=== PATIENT | male | born 1985 | race Caucasian/White ===

== ENCOUNTER 2016-08-20 16:13 | Emergency (ER) | payer MEDICAID ==
[2016-08-20] MEDS ORDERED: MAGNESIUM SULFATE 1 GM/2 ML VIAL ONE (17:01)
[2016-08-20] MEDS ORDERED: ONDANSETRON HCL 4 MG/2 ML VIAL ONE (17:02)
[2016-08-20] MEDS ORDERED: MULTIVITAMINS 10 ML VIAL IV ONE (17:02)
[2016-08-20] MEDS ORDERED: FAMOTIDINE IN SALINE, ISO-OSM 50 ML IV ONE (17:02)
[2016-08-20] MEDS ORDERED: THIAMINE HCL 200 MG/2 ML VIAL ONE (17:02)
[2016-08-20] MEDS ORDERED: NORMAL SALINE 1,000 ML IV ONE (17:02)
[2016-08-20 17:03] LABS: BASOPHILS 0.5 % (0.0-2.0); HEMATOCRIT 57.5 % (42.0-54.0); HEMOGLOBIN 19.7 g/dL (14.0-18.0); LYMPHOCYTES# 1.8 X 10^3uL (0.8-3.8); MEAN CELL VOLUME 90.1 fL (84.0-102.0); MEAN CORPUS. HGB CONCENTRATION 34.3 g/dL (32.0-36.0); MEAN CORPUSCULAR HEMOGLOBIN 30.9 pg (29.0-35.0); MONOCYTES# 0.5 X 10^3uL (0.2-1.0); NEUTROPHILS 71.5 % (54.0-75.0); NEUTROPHILS# 6.1 X 10^3uL (2.6-6.7); PLATELET COUNT 255 X 10^3uL (130-440); RED BLOOD COUNT 6.38 X 10^6uL (4.20-6.10); WHITE BLOOD COUNT 8.4 X 10^3uL (3.9-10.7)
[2016-08-20] MEDS ORDERED: LORazepam 2 MG/ML INJ ONE (17:03)
[2016-08-20 17:05] LABS: ALBUMIN 5.5 g/dL (3.5-5.0); ALKALINE PHOSPHATASE 105 U/L (38-126); ALT 392 U/L (21-72); AST 96 U/L (17-59); BILIRUBIN, DIRECT 0.8 mg/dL (0.0-0.4); BILIRUBIN, TOTAL 1.9 mg/dL (0.2-1.3); BLOOD UREA NITROGEN 8 mg/dL (9-20); CALCIUM 10.5 mg/dL (8.4-10.2); CHLORIDE 102 mmol/L (98-107); CREATININE 0.9 mg/dL (0.7-1.3); EST GLOMERULAR FILTRATION RATE > 60 mL/min; ETHYL ALCOHOL < 10 mg/dL (<10); GLUCOSE 102 mg/dL (70-100); MAGNESIUM 1.7 mg/dL (1.6-2.3); POTASSIUM 3.8 mmol/L (3.5-5.1); SODIUM 143 mmol/L (137-145); TOTAL PROTEIN 9.7 g/dL (6.3-8.2)
--- NOTE | 2016-08-20 18:26 | ER PHYSICIAN DOCUMENTATION ---
Physician Documentation [facility] Name:Abdoul Mendoza Age:31 yrs Sex:Male :1985 Arrival Date:08/20/2016 Time:16:13 Bed5 Private MD: Josemanuel Kilgore Disposition: 08/20/16 16:50 Discharged to Home/Self Care. Impression: Alcohol (ETOH) Withdrawal. - Condition is Good. - Discharge Instructions: ALCOHOL WITHDRAWAL, Alcoholic Cirrhosis - CIRRHOSIS. - Medical Reconciliation form form. - Follow up: Alisia [facility]; When: 2 - 3 days; Reason: Continuance of care. - Problem is an ongoing problem. - Symptoms have improved. HPI: 08/20 16:37 This 31 yrs old Male presents to ER via Walk In with complaints of Alcohol sc Withdrawal. 16:37 The patient presents to the emergency department with anxiety, a history of substance sc abuse, Type: vodka, whisky. Onset: The symptom(s)/episode began/occurred 3 day(s) ago. Associated signs and symptoms: Pertinent positives; abdominal pain, acid reflux. Severity of symptoms: At their worst the symptoms were mild. The patient has experienced similar episodes in the past, chronically. has librium for wd sxs, sober three weeks before 2 day binge starting Thursday. no h/o wd sxs or dts. Historical: - Allergies: No known drug Allergies; - Home Meds: 1. Effexor XR Oral 2. librium - PMHx: ALCOHOLISM; DEPRESSION; - PSHx: None; - Tetanus: < 10 years. - Ebola Screening: : Patient negative for fever greater than or equal to 101.5 degrees Fahrenheit, and additional compatible Ebola Virus Disease symptoms. Patient denies exposure to infectious person. Patient denies travel to an Ebola-affected area in the 21 days before illness onset. No symptoms or risks identified at this time. . - Immunization history: Flu Vaccine < 1 year. - Social history: Smoking status: Patient states was never smoker of tobacco. Patient uses alcohol marijuana. - Code Status:: Full code. ROS: 16:42 Constitutional: Negative for fever, chills, and weight loss. sc Eyes: Negative for injury, pain, redness, and discharge. ENT: Negative for injury, pain, and discharge. Neck: Negative for injury, pain, and swelling. Cardiovascular: Negative for chest pain, palpitations, and edema. Respiratory: Negative for shortness of breath, cough, wheezing, and pleuritic chest pain. Abdomen/GI: Negative for abdominal pain, nausea, vomiting, diarrhea, and constipation. Back: Negative for injury and pain. MS/Extremity: Negative for injury and deformity. Skin: Negative for injury, rash, and discoloration. 16:42 Neuro: Negative for headache, weakness, numbness, tingling, and seizure. sc 16:42 Psych: Positive for anxiety, depression, alcohol dependence, Negative for auditory hallucinations, visual hallucinations, homicidal ideation, suicide gesture, suicidal ideation. Exam: Constitutional: This is a well developed, well nourished patient who is awake, alert, and in no acute distress. Head/Face: Normocephalic, atraumatic. Eyes: Pupils equal round and reactive to light, extra-ocular motions intact. Lids and lashes normal. Conjunctiva and sclera are non-icteric and not injected. Cornea within normal limits. Periorbital areas with no swelling, redness, or edema. ENT: Nares patent. No nasal discharge, no septal abnormalities noted. Tympanic membranes are normal and external auditory canals are clear. Oropharynx with no redness, swelling, or masses, exudates, or evidence of obstruction, uvula midline. Mucous membranes moist. Neck: Trachea midline, no thyromegaly or masses palpated, and no cervical lymphadenopathy. Supple, full range of motion without nuchal rigidity, or vertebral point tenderness. No meningismus. Chest/axilla: Normal chest wall appearance and motion. Nontender with no deformity. No lesions are appreciated. Cardiovascular: Regular rate and rhythm with a normal S1 and S2. No gallops, murmurs, or rubs. Normal PMI, no JVD. No pulse deficits. Respiratory: Lungs have equal breath sounds bilaterally, clear to auscultation and percussion. No rales, rhonchi or wheezes noted. No increased work of breathing, no retractions or nasal flaring. Abdomen/GI: Soft, non-tender, with normal bowel sounds. No distension or tympany. No guarding or rebound. No evidence of tenderness throughout. Back: No spinal tenderness. No costovertebral tenderness. Full range of motion. Skin: Warm, dry with normal turgor. Normal color with no rashes, no lesions, and no evidence of cellulitis. 16:43 MS/ Extremity: Pulses equal, no cyanosis. Neurovascular intact. Full, normal range sc of motion, negative Homans's, calves equal bilaterally. 16:43 Neuro: Orientation: is normal, Mentation: is normal, Abnormal movements: mild tremulousness. 16:43 Psych: Behavior/mood is anxious, Affect is calm, Oriented to person, place, time, Patient has no thoughts/intents to harm self or others. Judgement / Insight is normal. Delusions/hallucinations are not present. Vital Signs: 16:38 BP 158 / 105; Pulse 104; Resp 21; Temp 97.8; Pulse Ox 98% on R/A; Weight 113.4 kg; lb Height 6 ft. 4 in. (193.04 cm); Pain 0/10; 17:44 BP 138 / 58; Pulse 71; Resp 14; Pulse Ox 98% on R/A; Pain 0/10; lb 18:24 BP 133 / 66; Pulse 90; Resp 16; Pulse Ox 97% on R/A; Pain 0/10; lb 16:38 Body Mass Index 30.43 (113.40 kg, 193.04 cm) lb MDM: 16:21 Patient medically screened. sc 16:45 Differential diagnosis: drug withdrawal. depression, binge drinking, not si/hi/danger sc to self, extensive discussion with patient and family identified resources, [facility], [facility], , david etc.. patient already has repeat appointment with counselor. Data reviewed: vital signs, nurses notes, lab test result(s), and as a result, I will continue to observe the patient, administer IV fluids. Counseling: I had a detailed discussion with the patient and/or guardian regarding: the historical points, exam findings, and any diagnostic results supporting the discharge/admit diagnosis, lab results, the need for outpatient follow up, to return to the emergency department if symptoms worsen or persist or if there are any questions or concerns that arise at home. Medication response: The patient's symptoms have improved. 08/20 17:06 Order name: BASIC METABOLIC PANEL; Complete Time: 18:16 EDMS 08/20 18:15 Interpretation: Normal. sc 08/20 17:06 Order name: MAGNESIUM; Complete Time: 18:16 EDMS 08/20 18:15 Interpretation: Normal. tn 08/20 17:06 Order name: HEPATIC PANEL; Complete Time: 18:16 EDAK 08/20 18:16 Interpretation: Abnormal: ALT 392; AST 96; BILIRUBIN, TOTAL 1.9. tn 08/20 17:06 Order name: ETHYL ALCOHOL; Complete Time: 18:16 EDMS 02 18:16 Interpretation: Normal. tn 08/20 17:07 Order name: CBC AUTO DIF, MDIF/RMOR IF IND; Complete Time: 18:16 EDMS 08/20 18:16 Interpretation: Abnormal: HEMOGLOBIN 19.7; HEMATOCRIT 57.5. tn Dispensed Medications: 16:37 Drug: NS 0.9% 1000 ml; Route: IV; Rate: bolus; Site: right antecubital; Delivery: tg [place] Tubing; 18:23 Follow up: IV Status: Completed infusion; IV Intake: 1000ml lb 17:00 Drug: Ativan 1 mg; Route: IVP; Site: right antecubital; tg 17:45 Follow up: Response: Anxiety decreased lb 17:05 Drug: Zofran 4 mg; Route: IVP; Infused Over: 2 mins; Site: right antecubital; tg 17:45 Follow up: Response: Nausea is decreased lb 17:06 Drug: Banana Bag - (NS 0.9% 1000 ml, folic acid 600 mcg, Thiamine 100 mg, Multivitamin tg 10 ml, Magnesium Sulfate 1 grams); Route: IV; Rate: calculated rate; Site: right antecubital; Delivery: [place] Tubing; 18:23 Follow up: IV Status: Completed infusion; IV Intake: 1000ml lb 17:06 Drug: Pepcid 20 mg; Route: IVPB; Site: right antecubital; tg 17:45 Follow up: Response: Nausea is decreased lb Signatures: Sonny Rainey, RN RN tg Josemanuel Black MD MD sc Beth Geronimo lb
--- NOTE | 2016-08-20 18:26 | ER NURSING DOCUMENTATION ---
Nurse's Notes [facility] Name:Abdoul Mendoza Age:31 yrs Sex:Male :1985 Arrival Date:08/20/2016 Time:16:13 Bed5 Private MD: Diagnosis:Alcohol (ETOH) Withdrawal Presentation: 08/20 16:28 Presenting complaint: Patient states: c/o shakiness, nausea, chills. states is an lb alcoholic, last drink yesterday of 2 pints of whiskey. Transition of care: Home. Notified ED Physician of Dr. Black notified. 16:28 Acuity: JAMES 3 lb 16:28 Method Of Arrival: Walk In lb Triage Assessment: 16:31 General: Appears distressed, Behavior is anxious, appropriate for age. Pain: Denies lb pain. Historical: - Allergies: No known drug Allergies; - Home Meds: 1. Effexor XR Oral 2. librium - PMHx: ALCOHOLISM; DEPRESSION; - PSHx: None; - Tetanus: < 10 years. - Ebola Screening: : Patient negative for fever greater than or equal to 101.5 degrees Fahrenheit, and additional compatible Ebola Virus Disease symptoms. Patient denies exposure to infectious person. Patient denies travel to an Ebola-affected area in the 21 days before illness onset. No symptoms or risks identified at this time. . - Immunization history: Flu Vaccine < 1 year. - Social history: Smoking status: Patient states was never smoker of tobacco. Patient uses alcohol marijuana. - Code Status:: Full code. Screenin:39 Infectious Disease Risk None. Abuse screen: Denies threats or abuse. Denies injuries lb from another. Nutritional screening: No deficits noted. Suicide Risk Assessment: Lives Alone - Yes (1 point). Assessment: 16:38 See Triage Assessment done by same RN. lb Vital Signs: 16:38 BP 158 / 105; Pulse 104; Resp 21; Temp 97.8; Pulse Ox 98% on R/A; Weight 113.4 kg; lb Height 6 ft. 4 in. (193.04 cm); Pain 0/10; 17:44 BP 138 / 58; Pulse 71; Resp 14; Pulse Ox 98% on R/A; Pain 0/10; lb 18:24 BP 133 / 66; Pulse 90; Resp 16; Pulse Ox 97% on R/A; Pain 0/10; lb 16:38 Body Mass Index 30.43 (113.40 kg, 193.04 cm) lb ED Course: 16:15 Patient arrived in ED. cj 16:21 Josemanuel Black MD is Attending Physician. sc 16:28 Beth Geronimo is Primary Nurse. lb 16:30 Triage completed. lb 16:36 Inserted peripheral IV: 20 gauge in right antecubital area and blood collected. tg 16:39 Valuables Remains with patient Patient has correct armband on for positive lb identification. Placed in gown. Bed in low position. Side rails up X 1. 16:49 [facility] is Referral Physician. sc Administered Medications: 16:37 Drug: NS 0.9% 1000 ml; Route: IV; Rate: bolus; Site: right antecubital; Delivery: tg [place] Tubing; 18:23 Follow up: IV Status: Completed infusion; IV Intake: 1000ml lb 17:00 Drug: Ativan 1 mg; Route: IVP; Site: right antecubital; tg 17:45 Follow up: Response: Anxiety decreased lb 17:05 Drug: Zofran 4 mg; Route: IVP; Infused Over: 2 mins; Site: right antecubital; tg 17:45 Follow up: Response: Nausea is decreased lb 17:06 Drug: Banana Bag - (NS 0.9% 1000 ml, folic acid 600 mcg, Thiamine 100 mg, Multivitamin tg 10 ml, Magnesium Sulfate 1 grams); Route: IV; Rate: calculated rate; Site: right antecubital; Delivery: [place] Tubing; 18:23 Follow up: IV Status: Completed infusion; IV Intake: 1000ml lb 17:06 Drug: Pepcid 20 mg; Route: IVPB; Site: right antecubital; tg 17:45 Follow up: Response: Nausea is decreased lb Intake: 18:23 IV: 1000ml; Total: 1000ml. lb 18:23 IV: 1000ml; Total: 2000ml. lb 18:29 IV: 2000ml (NS); Total: 4000ml. lb Outcome: 16:50 Discharge ordered by . sc 18:24 Discharged to home ambulatory. lb 18:24 Condition: improved 18:24 Discharge Assessment: Patient awake, alert and oriented x 3. No cognitive and/or functional deficits noted. Patient verbalized understanding of disposition instructions. 18:24 Instructed on discharge instructions, follow up and referral plans. 18:24 IV D/Enrique 18:25 Patient left the ED. lb Signatures: Sonny Rainey RN RN Josemanuel Rios MD MD sc Jones, Carissa cj Bollock, Lynda lb
== END 2016-08-20 18:26 | disposition home or self-care (01) ==
LOC: ER 16:13 → EEVIPCON 16:13 → ER 18:26
DX: F10.239 Alcohol dependence with withdrawal, unspecified (principal); F32.9 Major depressive disorder, single episode, unspecified; F41.9 Anxiety disorder, unspecified
CPT/HCPCS: 80048; 80076; 80320; 83735; 85025; 96365; 96375; 99283; J2060; J2405; J3475; J7030

== ENCOUNTER 2016-10-13 09:30 | Emergency (ER) | payer MEDICAID ==
[2016-10-13] MEDS ORDERED: THIAMINE HCL 200 MG/2 ML VIAL ONE (09:57)
[2016-10-13] MEDS ORDERED: NORMAL SALINE 1,000 ML IV ONE (09:57)
[2016-10-13] MEDS ORDERED: MULTIVITAMINS 10 ML VIAL IV ONE (09:57)
[2016-10-13] MEDS ORDERED: MAGNESIUM SULFATE 1 GM/2 ML VIAL ONE (09:57)
[2016-10-13] MEDS ORDERED: ONDANSETRON HCL 4 MG/2 ML VIAL ONE ×2 (10:01→10:37)
[2016-10-13 10:11] LABS: BASOPHILS 0.4 % (0.0-2.0); HEMATOCRIT 55.1 % (42.0-54.0); HEMOGLOBIN 19.5 g/dL (14.0-18.0); LYMPHOCYTES 9.8 % (20.0-40.0); LYMPHOCYTES# 1.2 X 10^3uL (0.8-3.8); MEAN CELL VOLUME 89.7 fL (80.0-100.0); MEAN CORPUS. HGB CONCENTRATION 35.3 g/dL (32.0-36.0); MEAN CORPUSCULAR HEMOGLOBIN 31.6 pg (29.0-35.0); MEAN PLATELET VOLUME 7.5 fL (7.4-10.4); MONOCYTES 6.5 % (2.0-10.0); MONOCYTES# 0.8 X 10^3uL (0.2-1.0); NEUTROPHILS 83.3 % (54.0-75.0); PLATELET COUNT 166 X 10^3uL (130-440); RED CELL DISTRIBUTION WIDTH 14.7 % (11.5-14.5)
[2016-10-13 10:15] LABS: ALBUMIN 5.2 g/dL (3.5-5.0); ALKALINE PHOSPHATASE 102 U/L (38-126); ALT 57 U/L (21-72); AST 37 U/L (17-59); BILIRUBIN, DIRECT 0.6 mg/dL (0.0-0.4); BLOOD UREA NITROGEN 7 mg/dL (9-20); CALCIUM 9.9 mg/dL (8.4-10.2); CHLORIDE 102 mmol/L (98-107); CREATININE 0.9 mg/dL (0.7-1.3); EST GLOMERULAR FILTRATION RATE > 60 mL/min; ETHYL ALCOHOL 55 mg/dL (<10); GLUCOSE 170 mg/dL (70-100); LIPASE 150 U/L (23-300); MAGNESIUM 1.6 mg/dL (1.6-2.3); POTASSIUM 3.6 mmol/L (3.5-5.1); SODIUM 141 mmol/L (137-145); TOTAL PROTEIN 9.1 g/dL (6.3-8.2)
[2016-10-13 10:20] LABS: RED BLOOD COUNT 6.15 X 10^6uL (4.20-6.10)
[2016-10-13] MEDS ORDERED: HYDROmorphone HCL 1 MG/ML SYR ONE (10:37)
[2016-10-13 10:41] LABS: URINE RBC NONE SEEN (0-5/hpf)
[2016-10-13 10:56] LABS: URINE APPEARANCE CLEAR; URINE COLOR AMBER
[2016-10-13 10:57] LABS: URINE GLUCOSE NORMAL (NEGATIVE); URINE LEUKOCYTE ESTERASE NEGATIVE (NEGATIVE); URINE NITRITE NEGATIVE (NEGATIVE); URINE PH 5.5 (5-7); URINE PROTEIN 100mg/dL (2+) (NEG - TRACE)
[2016-10-13] MEDS ORDERED: LIDOCAINE VISCOUS 2% 15 ML UDC ONE (10:57)
[2016-10-13] MEDS ORDERED: MAG-AL PLUS XS SUSP 30 ML UDC ONE (10:57)
[2016-10-13] MEDS ORDERED: PHENOBARB/HYOSCY/ATROPINE/SCOP 16.2 MG/5 ML SYR ONE (10:57)
[2016-10-13 10:58] LABS: URINE BILIRUBIN NEGATIVE (NEGATIVE); URINE KETONE 100mg/dL (3+) (NEGATIVE); URINE UROBILINOGEN 0.2mg/dL (Normal) (NEG-1mg/dL)
[2016-10-13 10:59] LABS: URINE BACTERIA <10 ORGANISMS/hpf (<10/hpf); URINE BLOOD NEGATIVE (NEGATIVE); URINE MUCUS UP TO 25%/lpf (Up to 25%); URINE SQUAMOUS EPITHELIAL CELL 0-5/hpf (<= 15/hpf); URINE WBC 0-4/hpf (0-4/hpf)
[2016-10-13] MEDS ORDERED: CHLORDIAZEPOXIDE 25 MG CAPSULE PO ONE (11:29)
--- NOTE | 2016-10-14 13:03 | ER PHYSICIAN DOCUMENTATION ---
Physician Documentation [facility] Name:Abdoul Mendoza Age:31 yrs Sex:Male :1985 Arrival Date:10/13/2016 Time:09:30 Bed5 Private MD:Alisia, Provider ED Darciejohanne Yang Disposition: 10/13 11:22 Chart complete. cd Disposition: 10/13/16 11:[address] [facility]. Diagnosis are Major Depression with Suicidal Ideation, Alcohol (ETOH) Withdrawal, Alcohol Intoxication, Dependence Acute, Dehydration, Alcohol Gastritis, w/o Hemorrhage. - Reason for transfer: Specialty. - Accepting physician is Kamlesh Enamorado MD, [facility] ED MD. - Condition is Fair. - Problem is new. - Symptoms have improved. COBRA Form completed? Yes Transfer - Mode of Transportation Ambulance HPI: 09:40 This 31 yrs old Male presents to ER via Private Vehicle with complaints of cd Abdominal pain and Alcohol Withdrawal Symptoms. 09:40 The patient presents to the emergency department after a known overdose, that was cd intentional. Context: Method: the patient has a confirmed or suspected ingestion, of alcohol, Time: over the last three days he has drank three bottles of Vodka. He cannot remember when his last drink was last night. He has had multiple thoughts of suicide....wanting to drink himself to . He now presents with ETOH withdrawal tremors, abdominal pain, severe dehydration and severe nausea. He reports vomiting over 20 times since Midnight last night. He denies fever or chills., Extent: severe ingestion, the OD/poisoning occurred at at home, and was witnessed no one, Psychiatric history: the patient has a known psychiatric disorder, depression, Anxiety, previous Suicide Gestures, Previous OD/poisoning history: yes. Associated signs and symptoms: Pertinent positives: anxiety, depression, nausea, vomiting, Pertinent negatives: auditory hallucinations, decreased level of consciousness, visual hallucinations. Severity of symptoms: At their worst the symptoms were severe in the emergency department the symptoms are unchanged. The patient presents with abdominal pain in the upper abdomen. Onset: The symptoms/episode began/occurred acutely, last night. The symptoms do not radiate. Associated signs and symptoms: Pertinent positives: anorexia, nausea, vomiting, Pertinent negatives: blood in stools, chest pain, diarrhea, fever, vomiting blood. Severity of pain: At its worst the pain was moderate in the emergency department the pain is unchanged. This patient does not have any risk factors related to abdominal pain. The patient has experienced similar episodes in the past. Historical: - Allergies: No known drug Allergies; - Home Meds: 1. None - PMHx: ALCOHOLISM; DEPRESSION; - PSHx: NONE; - Tetanus: < 10 years. - Ebola Screening: : Patient denies exposure to infectious person. Patient denies travel to an Ebola-affected area in the 21 days before illness onset. . - Family history: Father has/had Severe Bipolar Illness per patient's mother. - Social history: Smoking status: Patient uses tobacco products, current every day smoker. Patient uses alcohol patient/guardian reports chronic longstanding heavy alcohol consumption. patient/guardian reports recent binge of alcohol consumption. marijuana. ROS: 10:51 Eyes: Negative for injury, pain, redness, discharge, blurry vision and loss of vision. cd ENT: Negative for injury, pain, epistaxis and discharge. Neck: Negative for injury, pain, stiffness and swelling. Back: Negative for injury, pain or muscle spasms. : Negative for injury, bleeding, discharge, swelling, dysuria, frequency or urgency. MS/Extremity: Negative for injury, deformity, edema, calf tenderness, pain or coldness. 10:51 Skin: Negative for injury, rash, itching and discoloration. cd 10:51 Constitutional: Positive for malaise, poor PO intake, Negative for chills, fever. 10:51 Cardiovascular: Negative for chest pain, palpitations. 10:51 Respiratory: Negative for cough, shortness of breath. 10:51 Abdomen/GI: Positive for abdominal pain, nausea, vomiting, anorexia, Negative for diarrhea, abdominal distension, hematemesis, black/tarry stool, rectal bleeding. 10:51 Neuro: Positive for tremor, Negative for altered mental status, dizziness, headache, seizure activity, speech changes, syncope. 10:51 Psych: Positive for anxiety, depression, alcohol dependence, insomnia, suicide gesture, suicidal ideation, Negative for drug dependence, auditory hallucinations, visual hallucinations. 10:51 All other systems are negative. Exam: Head/Face: Normocephalic, atraumatic. Eyes: Pupils equal round and reactive to light, extra-ocular motions intact. Lids and lashes normal. Conjunctiva and sclera are non-icteric and not injected. Cornea within normal limits. Periorbital areas with no swelling, redness, or edema. ENT: Nares patent. No nasal discharge, no septal abnormalities noted. Tympanic membranes are normal and external auditory canals are clear. Oropharynx with no redness, swelling, or masses, exudates, or evidence of obstruction, uvula midline. Mucous membranes very dry Neck: Trachea midline, no thyromegaly or masses palpated, and no cervical lymphadenopathy. Supple, full range of motion without nuchal rigidity, or vertebral point tenderness. No Meningismus. Chest/axilla: Normal chest wall appearance and motion. Nontender with no deformity. No lesions are appreciated. Skin: Warm, dry with normal turgor. Normal color with no rashes, no lesions, and no evidence of cellulitis. 10:53 MS/ Extremity: Pulses equal, no cyanosis. Neurovascular intact. Full, normal range cd of motion. 10:53 Constitutional: The patient appears alert, awake, non-diaphoretic, non-toxic, well developed, well nourished, anxious, in obvious distress, moderately distressed. 10:53 Cardiovascular: Rate: tachycardic, actual rate is 119 bpm, Rhythm: regular, Pulses: no pulse deficits are appreciated, Heart sounds: normal. 10:53 Respiratory: the patient does not display signs of respiratory distress, Respirations: normal, no acute changes, Breath sounds: are normal, clear throughout. 10:53 Abdomen/GI: Inspection: abdomen appears normal, Bowel sounds: diminished, Palpation: moderate abdominal tenderness, in the right upper quadrant and left upper quadrant, Rectal exam: the exam is deferred, Indicators: McBurney's point is not tender, Urban's sign is positive. 10:53 Back: normal spinal alignment noted, CVA tenderness, is absent. 10:53 : CVA tenderness, is absent, Rectal exam: is not applicable. 10:53 Neuro: Orientation: is normal, to person, place & time. Mentation: is normal, lucid, Memory: is normal, Cranial nerves: CN II- XII are normal as tested, Cerebellar function: is grossly normal, Motor: is normal, Sensation: is normal. 10:53 Psych: Behavior/mood is pleasant, cooperative, anxious, suicidal, depressed, Affect is flat, Oriented to person, place, time, Patient having thoughts of suicide. Denies suicidal plan. Judgement / Insight is impaired. Recent memory is impaired. Remote memory is intact. Delusions/hallucinations are not present. Vital Signs: 09:30 BP 138 / 97; Pulse 119; Resp 20; Temp 98.0; Pulse Ox 91% on R/A; Pain 7/10; st 09:30 Pain 7/10; st 10:50 BP 152 / 90 (auto/); Pulse 93; st 10:52 Pulse Ox 94% ; st 11:00 BP 142 / 85 (auto/); Pulse 92; st 11:02 Pulse Ox 95% ; st 11:07 Pain 4/10; st 11:30 BP 141 / 73; Pulse 69; Pulse Ox 99% on R/A; st [place] Coma Score: 10:53 Eye Response: spontaneous(4). Verbal Response: oriented(5). Motor Response: obeys cd commands(6). Total: 15. MDM: 09:43 Data interpreted: Pulse oximetry: on room air is 91 %. Interpretation: normal. cd 09:45 Patient medically screened. cd 09:50 Differential diagnosis: Ingestion/exposure to ETOH polypharmacy, appendicitis, cd cholecystitis, gastritis, pancreatitis, Peptic Ulcer Disease, Alcoholic Gastritis, Severe Dehydration. 10:00 Data reviewed: vital signs, nurses notes, old medical records, and as a result, I will cd *Transfer Patient administer IV fluids, NS bolus, NS maintenence, prescribe pain medication, Dilaudid, and Zofran for nausea. He will also receive a GI Cocktail with . 10:59 Counseling: I had a detailed discussion with the patient and/or guardian regarding: the cd historical points, exam findings, and any diagnostic results supporting the discharge/admit diagnosis, lab results, the need to transfer to another facility, for higher level of care, [facility] does not immediately have the required specialist. 11:10 Response to treatment: the patient's symptoms have markedly improved after treatment, cd patient's upper abdominal pain is much improved after the Dilaudid IM and GI Cocktail. It seems that the GI Cocktail was most effective.. 11:17 Physician consultation: Kamlesh Enamorado MD was called at 11:10, was contacted at cd 11:13, regarding admission, to [facility] ED, consult, patient's condition, need to come to ED to see patient, need to evaluate the patient as soon as possible, and will see patient in ED, shortly, later today, after a discussion of the case, a recommendation for transfer for higher level of care is made. 10/13 10:18 Order name: BASIC METABOLIC PANEL; Complete Time: 10:23 [facility] 10/13 10:21 Interpretation: Abnormal: CARBON DIOXIDE 16; GLUCOSE 170; Metabolic Acidosis, cd Dehydration, Hyperglycemia. 10/13 10:18 Order name: MAGNESIUM; Complete Time: : [facility] 10/13 10:21 Interpretation: Normal. 10/13 10:18 Order name: HEPATIC PANEL; Complete Time: :23 [facility] 10/13 10:21 Interpretation: Normal Except: BILIRUBIN, TOTAL 2.0; BILIRUBIN, DIRECT 0.6. 10/13 10:18 Order name: LIPASE; Complete Time: 10:23 [facility] 10/13 10:22 Interpretation: Normal. 10/13 10:18 Order name: ETHYL ALCOHOL; Complete Time: 10:23 [facility] 10/13 10:22 Interpretation: Abnormal: ETHYL ALCOHOL 55. 10/13 10:20 Order name: CBC AUTO DIF, MDIF/RMOR IF IND; Complete Time: 10:23 [facility] 10/13 10:22 Interpretation: WHITE BLOOD COUNT 12.0; HEMOGLOBIN 19.5; HEMATOCRIT 55.1; NEUTROPHILS cd 83.3; Dehydration, Thrombocytopenia, Elevated WBC with Left shift. 10/13 11:00 Order name: UA W/ MICRO -CULTURE IF IND; Complete Time: 11:23 [facility] 10/13 11:18 Order name: URINE DRUG SCREEN, QUAL; Complete Time: 11:23 [facility] 10/13 11:22 Interpretation: Abnormal: THC PRESUMPTIVE POS; BEN[place]ES PRESUMPTIVE POS. 10/13 09:48 Order name: Iv Saline Lock; Complete Time: 09:54 10/13 09:48 Order name: Pulse Ox Continuous; Complete Time: 09:54 10/13 09:48 Order name: NPO; Complete Time: 09:54 10/13 11:15 Order name: Oxygen; Complete Time: 11:15 st Dispensed Medications: 09:53 Drug: Banana Bag - (Magnesium Sulfate 2 grams, NS 0.9% 1000 ml, folic acid 600 mcg, st Thiamine 100 mg, Multivitamin 10 ml); Route: IV; Rate: calculated rate; Site: right antecubital; 10:51 Follow up: IV Status: Completed infusion; IV Intake: 1000ml st 09:54 Drug: Zofran 4 mg; Route: IVP; Infused Over: 2 mins; Site: right antecubital; st 10:51 Follow up: Response: Nausea unchanged st 10:30 Drug: Dilaudid 1 mg; Route: IVP; Site: right antecubital; st 10:51 Follow up: Response: Pain is unchanged, physician notified st 10:30 Drug: Zofran 4 mg; Route: IVP; Infused Over: 2 mins; Site: right antecubital; st 10:51 Follow up: Response: Nausea is decreased st 10:50 Drug: GI Cocktail w/ Donnatol - (Maalox Suspension 30 ml, Phenobarbital-Belladonna 15 st ml, Lidocaine Liquid 2 % 15 ml); Route: PO; 11:21 Follow up: Response: Pain is decreased st 10:50 Drug: NS 0.9% 2000 ml; Route: IV; Rate: bolus; Site: right antecubital; st 11:07 Follow up: IV Intake: 1000ml st 11:45 Follow up: IV Status: Completed infusion; IV Intake: 1000ml st 11:21 Drug: librium - chlordiazePOXIDE 50 mg; Route: PO; st 11:46 Follow up: Response: No adverse reaction st 11:46 Drug: NS 0.9% 1000 ml; Route: IV; Rate: bolus; Site: right antecubital; st 11:46 Follow up: IV Status: Infusing continued upon transfer st Signatures: Afshan Diamond RN RN st Daley, Chris, MD MD cd
--- NOTE | 2016-10-14 13:03 | ER NURSING DOCUMENTATION ---
Nurse's Notes [facility] Name:Abdoul Mendoza Age:31 yrs Sex:Male :1985 Arrival Date:10/13/2016 Time:09:30 Bed5 Private MD:Alisia, Provider Diagnosis:Major Depression with Suicidal Ideation;Alcohol (ETOH) Withdrawal;Alcohol Intoxication, Dependence Acute;Dehydration;Alcohol Gastritis, w/o Hemorrhage Presentation: 10/13 09:30 Presenting complaint: Patient states: pt has been drinking for three days finishing 3 st bottles of vodka in that time. pt is nauseated shake and states he can't sleep. Transition of care: Home. Care prior to arrival: pt tried to take a Librium but vomited it up. 09:30 Method Of Arrival: Private Vehicle st 09:37 Acuity: JAMES 3 st Triage Assessment: 09:30 General: Appears uncomfortable, Behavior is cooperative. Pain: Complains of pain in st epigastric area, right upper quadrant and left upper quadrant Pain currently is 7 out of 10 on a pain scale. EENT: Oral mucosa is dry. Neuro: No deficits noted. Cardiovascular: No deficits noted. Respiratory: No deficits noted. GI: Abdomen is obese, Abd is soft X 4 quads Abdomen is tender to palpation in epigastric area and left upper quadrant Reports upper abdominal pain, nausea, vomiting. Musculoskeletal: shake. Historical: - Allergies: No known drug Allergies; - Home Meds: 1. None - PMHx: ALCOHOLISM; DEPRESSION; - PSHx: NONE; - Tetanus: < 10 years. - Ebola Screening: : Patient denies exposure to infectious person. Patient denies travel to an Ebola-affected area in the 21 days before illness onset. . - Family history: Father has/had Severe Bipolar Illness per patient's mother. - Social history: Smoking status: Patient uses tobacco products, current every day smoker. Patient uses alcohol patient/guardian reports chronic longstanding heavy alcohol consumption. patient/guardian reports recent binge of alcohol consumption. marijuana. Screenin:59 Infectious Disease Risk None. Abuse screen: Denies threats or abuse. Denies injuries st from another. Abuse screen: pt states he has had thoughts of hurting himself for the last few months. pt states he knows he really does not want to but those thoughts are there. pt has no specific plan. he has cut on himself in the past. pt was on an anti depressant till his last sobriety when he came off then when he got depressed again he picked up the ETOH again. Nutritional screening: chronic ETOH abuse. Vital Signs: 09:30 BP 138 / 97; Pulse 119; Resp 20; Temp 98.0; Pulse Ox 91% on R/A; Pain 7/10; st 09:30 Pain 7/10; st 10:50 BP 152 / 90 (auto/); Pulse 93; st 10:52 Pulse Ox 94% ; st 11:00 BP 142 / 85 (auto/); Pulse 92; st 11:02 Pulse Ox 95% ; st 11:07 Pain 4/10; st 11:30 BP 141 / 73; Pulse 69; Pulse Ox 99% on R/A; st [place] Coma Score: 10:53 Eye Response: spontaneous(4). Verbal Response: oriented(5). Motor Response: obeys cd commands(6). Total: 15. ED Course: 09:31 Patient arrived in ED. ds 09:31 Alisia, Provider is Private Physician. ds 09:31 Afshan Diamond, RN is Primary Nurse. st 09:[address] 09:44 Inserted peripheral IV: 20 gauge in right antecubital area and blood collected. st 09:45 Yang Lema MD is Attending Physician. cd 10:01 Valuables Remains with patient Patient has correct armband on for positive st identification. Bed in low position. Pulse Ox - RN Monitoring Only NIBP On - RN Monitoring Only. Warm blanket given. 10:34 pt pockets emptied belongings taken out of room. Assisted with urinal. st 10:37 [address]. Voided. st 11:15 Oxygen Oxygen administration via nasal cannula @ 2L/min. st Administered Medications: 09:53 Drug: Banana Bag - (Magnesium Sulfate 2 grams, NS 0.9% 1000 ml, folic acid 600 mcg, st Thiamine 100 mg, Multivitamin 10 ml); Route: IV; Rate: calculated rate; Site: right antecubital; 10:51 Follow up: IV Status: Completed infusion; IV Intake: 1000ml st 09:54 Drug: Zofran 4 mg; Route: IVP; Infused Over: 2 mins; Site: right antecubital; st 10:51 Follow up: Response: Nausea unchanged st 10:30 Drug: Dilaudid 1 mg; Route: IVP; Site: right antecubital; st 10:51 Follow up: Response: Pain is unchanged, physician notified st 10:30 Drug: Zofran 4 mg; Route: IVP; Infused Over: 2 mins; Site: right antecubital; st 10:51 Follow up: Response: Nausea is decreased st 10:50 Drug: GI Cocktail w/ Donnatol - (Maalox Suspension 30 ml, Phenobarbital-Belladonna 15 st ml, Lidocaine Liquid 2 % 15 ml); Route: PO; 11:21 Follow up: Response: Pain is decreased st 10:50 Drug: NS 0.9% 2000 ml; Route: IV; Rate: bolus; Site: right antecubital; st 11:07 Follow up: IV Intake: 1000ml st 11:45 Follow up: IV Status: Completed infusion; IV Intake: 1000ml st 11:21 Drug: librium - chlordiazePOXIDE 50 mg; Route: PO; st 11:46 Follow up: Response: No adverse reaction st 11:46 Drug: NS 0.9% 1000 ml; Route: IV; Rate: bolus; Site: right antecubital; st 11:46 Follow up: IV Status: Infusing continued upon transfer st Intake: 10:51 IV: 1000ml; Total: 1000ml. st 11:07 IV: 1000ml; Total: 2000ml. st 11:45 IV: 1000ml; Total: 3000ml. st Outcome: 11:21 ER care complete, transfer ordered by . cd 11:26 Transferred: Patient will be transferred to: [facility]. Facility st Acceptance Time: October 13, 2016 at 11:26 Patient's face sheet was faxed to accepting facility. Face Sheet included patient's name, address, age, gender, contact information and insurance information. Patient will be transported by: [facility] ground. 11:32 Transferred: st 11:32 Report given to Esther Javier RN 11:51 [address] ED[address] st Signatures: Afshan Diamond RN RN st ot, Yaneli, Carson Reg Yang Medellin MD MD cd
== END 2016-10-14 13:02 | disposition short-term general hospital (02) ==
LOC: ER 09:30
DX: F32.9 Major depressive disorder, single episode, unspecified (principal); R45.851 Suicidal ideations; F10.239 Alcohol dependence with withdrawal, unspecified; E86.0 Dehydration; K29.20 Alcoholic gastritis without bleeding; R53.81 Other malaise; R00.0 Tachycardia, unspecified; R73.9 Hyperglycemia, unspecified; R11.2 Nausea with vomiting, unspecified; F12.90 Cannabis use, unspecified, uncomplicated; Z74.3 Need for continuous supervision
CPT/HCPCS: 80048; 80076; 80305; 80320; 81001; 83690; 83735; 85025; 96361; 96365; 96375; 96376; 99285; J1170; J2405; J3475; J7030

== ENCOUNTER 2016-12-02 14:14 | Emergency (ER) | payer MEDICAID ==
[2016-12-02] MEDS ORDERED: ONDANSETRON HCL 4 MG/2 ML VIAL ONE (14:36)
[2016-12-02] MEDS ORDERED: LORazepam 2 MG/ML INJ ONE (14:41)
[2016-12-02 14:57] LABS: ALBUMIN 5.1 g/dL (3.5-5.0); ALKALINE PHOSPHATASE 116 U/L (38-126); ALT 59 U/L (21-72); AST 46 U/L (17-59); BILIRUBIN, DIRECT 0.5 mg/dL (0.0-0.4); BILIRUBIN, TOTAL 1.8 mg/dL (0.2-1.3); BLOOD UREA NITROGEN 6 mg/dL (9-20); CHLORIDE 102 mmol/L (98-107); EST GLOMERULAR FILTRATION RATE > 60 mL/min; ETHYL ALCOHOL 42 mg/dL (<10); GLUCOSE 118 mg/dL (70-100); LIPASE 180 U/L (23-300); POTASSIUM 3.8 mmol/L (3.5-5.1); SODIUM 146 mmol/L (137-145); TOTAL PROTEIN 9.3 g/dL (6.3-8.2)
[2016-12-02] MEDS ORDERED: NORMAL SALINE 1,000 ML IV ONE ×2 (15:00)
[2016-12-02] MEDS ORDERED: THIAMINE HCL 200 MG/2 ML VIAL ONE (15:00)
[2016-12-02] MEDS ORDERED: MAGNESIUM SULFATE 1 GM/2 ML VIAL ONE (15:00)
[2016-12-02] MEDS ORDERED: MULTIVITAMINS 10 ML VIAL IV ONE (15:01)
[2016-12-02 15:36] LABS: HEMOGLOBIN 19.1 g/dL (14.0-18.0)
[2016-12-02 15:37] LABS: MEAN CORPUS. HGB CONCENTRATION 30.7 g/dL (32.0-36.0); MEAN CORPUSCULAR HEMOGLOBIN 30.9 pg (29.0-35.0); PLATELET COUNT 167 X 10^3uL (130-440)
[2016-12-02 15:42] LABS: BASOPHIL % (Manual) 1 % (0.0-2.0); LYMPHOCYTE % (Manual) 25 % (20.0-40.0); MONOCYTE % (Manual) 8 % (2.0-10.0); NEUTROPHIL % (Manual) 67 % (54.0-75.0); PLATELET ESTIMATE ADEQUATE
[2016-12-02 15:43] LABS: RED BLOOD COUNT 6.18 X 10^6uL (4.20-6.10)
[2016-12-02 15:44] LABS: HEMATOCRIT 62.2 % (42.0-54.0)
[2016-12-02] MEDS ORDERED: CHLORDIAZEPOXIDE 25 MG CAPSULE PO ONE ×2 (17:40→17:49)
--- NOTE | 2016-12-02 18:02 | ER NURSING DOCUMENTATION ---
Nurse's Notes [facility] Name:Abdoul Mendoza Age:31 yrs Sex:Male :1985 Arrival Date:12/02/2016 Time:14:14 Bed1 Private MD:Alisia, Provider Diagnosis:Alcohol (ETOH) Withdrawal Presentation: 12/02 14:17 Presenting complaint: Patient states: ETOH withdrawal. lp 14:17 Acuity: JAMES 3 lp 14:21 Transition of care: Home. Care prior to arrival: None. 2 14:21 Method Of Arrival: Walk In [facility] Triage Assessment: 14:21 General: Appears uncomfortable, Behavior is cooperative, pleasant. Pain: Complains of mk2 pain in Pt admits to abdominal pain, chest pain and generalized body aches. Neuro: No deficits noted. Level of Consciousness is awake, alert, Oriented to person, place, time, event. Cardiovascular: Capillary refill < 3 seconds Rhythm is sinus tachycardia. Respiratory: Breath sounds are clear bilaterally. Derm: Skin is diaphoretic. Historical: - Allergies: No known drug Allergies; - Home Meds: 1. None - PMHx: ALCOHOLISM; - PSHx: None; - Tetanus: < 10 years. - Ebola Screening: : Patient negative for fever greater than or equal to 101.5 degrees Fahrenheit, and additional compatible Ebola Virus Disease symptoms. Patient denies exposure to infectious person. Patient denies travel to an Ebola-affected area in the 21 days before illness onset. No symptoms or risks identified at this time. . - Immunization history: Flu Vaccine < 1 year. - Social history: Smoking status: Patient uses tobacco products, current every day smoker. Patient uses alcohol patient/guardian reports chronic longstanding heavy alcohol consumption. patient/guardian reports recent binge of alcohol consumption. street drugs, marijuana, Patient/guardian denies using IV drugs. Screenin:32 Infectious Disease Risk None. Abuse screen: Denies threats or abuse. Nutritional mk2 screening: No deficits noted. Suicide Risk Assessment: Suicidal Thinking Present - No ( 0 points). Assessment: 14:32 See Triage Assessment done by same RN. 2 Vital Signs: 14:25 BP 164 / 91; Pulse 103; Resp 25; Temp 98.7; Pulse Ox 97% on R/A; Weight 113.4 kg; mk2 Height 6 ft. 5 in. (195.58 cm); Pain 7/10; 14:59 BP 140 / 87; Pulse 91; Resp 22; Pulse Ox 99% on R/A; Pain 5/10; mk2 15:32 BP 124 / 76 (auto/); mk2 15:32 Pulse 73 MON; Resp 20; Pulse Ox 94% ; mk2 18:01 BP 138 / 88; Pulse 78; Resp 17; Pulse Ox 96% on R/A; Pain 3/10; mk2 14:25 Body Mass Index 29.65 (113.40 kg, 195.58 cm) mk2 ED Course: 14:15 Patient arrived in ED. ds 14:16 Alisia, Provider is Private Physician. ds 14:16 Inserted peripheral IV: 20 gauge in right antecubital area and blood collected. mk2 14:17 Triage completed. lp 14:21 [place], RN is Primary Nurse. mk2 14:23 EKG done. (by ED staff). Oxygen Oxygen administration via nasal cannula @ 2L/min. mk2 14:[address] Cooper notified. mk2 14:32 Arm band placed on Bed in low position Call Light in Reach Gowned HOB Elevated Side mk2 rails up x2. 14:37 Favio Cooper MD is Attending Physician. jm 14:42 Inserted peripheral IV: 20 gauge in right hand. cb 14:43 Pt was extremely diaphoretic and shaking prior to ativan administration. Pt is now dry mk2 and feeling more comfortable. 15:09 Valuables Remains with patient. 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 Pulse ox on. NIBP on. Verbal mk2 reassurance given. 17:05 Alisia, Provider is Referral Physician. sky 17:58 Urine collected. Voided. mk2 Administered Medications: 14:31 Drug: Ativan 1 mg; Route: IVP; Site: right antecubital; mk2 14:42 Follow up: Response: Anxiety decreased; Pain is decreased mk2 14:32 Drug: Zofran 4 mg; Route: IVP; Infused Over: 2 mins; Site: right antecubital; mk2 14:42 Follow up: Response: Nausea is decreased mk2 14:58 Drug: Banana Bag - (NS 0.9% 1000 ml, folic acid 600 mcg, Thiamine 100 mg, Multivitamin mk2 10 ml, Magnesium Sulfate 1 grams); Route: IV; Rate: calculated rate; Site: right antecubital; 16:13 Follow up: IV Status: Completed infusion; IV Intake: 1000ml mk2 14:59 Drug: Ativan 1 mg; Route: IVP; Site: right antecubital; mk2 15:09 Follow up: Response: Nausea is decreased mk2 17:57 Drug: librium - chlordiazePOXIDE 50 mg; Route: PO; mk2 17:58 Follow up: Response: No adverse reaction mk2 Point of Care Testing: Urine Dip: 17:59 pH: 7.0; ; Specific [place]: 1.020; Ketones: 4 mg/dL; Glucose: Negative; Protein: 2 mk2 mg/dL; Leukocytes: Negative; Nitrite: Negative ; Blood: Negative; Bilirubin: 1 mg/dL; Urobilinogen: Normal 17:59 Pt was unable to urinate until just prior to leaving the building. Pt was advised to mk2 drink a lot of fluids over the next few days. Intake: 16:13 IV: 1000ml; Total: 1000ml. mk2 Outcome: 17:07 Discharge ordered by . sky 18:01 Discharged to home via wheelchair. mk2 18:01 Condition: improved 18:01 Discharge Assessment: Patient awake, alert and oriented x 3. No cognitive and/or functional deficits noted. Patient verbalized understanding of disposition instructions. 18:01 Discharge instructions given to patient, Instructed on discharge instructions, follow up and referral plans. medication usage, no drinking with medication, no driving heavy equipment. 18:01 Prescriptions given X 1. 18:01 IV D/Enrique 18:01 Patient left the ED. mk2 Signatures: Codie Wynn RN RN cb Pavlish, Lena, RN RN lp Srot, Deidra, Reg Reg Favio Martines MD MD jm Kruger, Meg, RN RN mk2
--- NOTE | 2016-12-02 18:02 | ER PHYSICIAN DOCUMENTATION ---
Physician Documentation [facility] Name:Abdoul Mendoza Age:31 yrs Sex:Male :1985 Arrival Date:12/02/2016 Time:14:14 Bed1 Private MD:Alisia, Provider ED MarthaFavio whiting Disposition: 12/02/16 17:07 Discharged to Home/Self Care. Impression: Alcohol (ETOH) Withdrawal. - Condition is Good. - Discharge Instructions: ALCOHOL WITHDRAWAL. - Prescriptions for chlordiazepoxide HCl 25 mg Oral capsule - take 2 capsule by ORAL route 4 times per day Take less and less every 3-4 days until you run out.; 30 capsule. - Medical Reconciliation form form. - Follow up: Alisia Provider; When: 2 - 3 days; Reason: Continuance of care. - Problem is new. - Symptoms have improved. HPI: 12/02 16:40 This 31 yrs old Male presents to ER via Walk In with complaints of ETOH Abuse. 16:40 The patient presents to the emergency department with a history of substance abuse, jm Type: vodka, 2 bottles per day. Onset: The symptom(s)/episode began/occurred 1 week(s) ago. 17:23 Past psychiatric history: Prior diagnosis: addiction history, alcohol. Severity of jm symptoms: in the emergency department the symptoms are unchanged. Historical: - Allergies: No known drug Allergies; - Home Meds: 1. None - PMHx: ALCOHOLISM; - PSHx: None; - Tetanus: < 10 years. - Ebola Screening: : Patient negative for fever greater than or equal to 101.5 degrees Fahrenheit, and additional compatible Ebola Virus Disease symptoms. Patient denies exposure to infectious person. Patient denies travel to an Ebola-affected area in the 21 days before illness onset. No symptoms or risks identified at this time. . - Immunization history: Flu Vaccine < 1 year. - Social history: Smoking status: Patient uses tobacco products, current every day smoker. Patient uses alcohol patient/guardian reports chronic longstanding heavy alcohol consumption. patient/guardian reports recent binge of alcohol consumption. street drugs, marijuana, Patient/guardian denies using IV drugs. ROS: 17:23 Constitutional: Negative for fever. jm 17:23 Abdomen/GI: Positive for abdominal pain, nausea. 17:23 Psych: Positive for alcohol dependence. Exam: 17:23 Constitutional: The patient appears alert, awake, anxious, diaphoretic, in obvious jm distress, moderately distressed. 17:23 Cardiovascular: Rate: tachycardic, Rhythm: regular. 17:23 Respiratory: the patient does not display signs of respiratory distress, Respirations: normal, Breath sounds: are normal. 17:23 Abdomen/GI: Bowel sounds: normal, Palpation: abdomen is soft and non-tender. 17:23 Skin: Appearance: diaphoresis is noted, no rash present. 17:23 Psych: Behavior/mood is pleasant, cooperative, anxious, Affect is animated. Vital Signs: 14:25 BP 164 / 91; Pulse 103; Resp 25; Temp 98.7; Pulse Ox 97% on R/A; Weight 113.4 kg; mk2 Height 6 ft. 5 in. (195.58 cm); Pain 7/10; 14:59 BP 140 / 87; Pulse 91; Resp 22; Pulse Ox 99% on R/A; Pain 5/10; mk2 15:32 BP 124 / 76 (auto/); mk2 15:32 Pulse 73 MON; Resp 20; Pulse Ox 94% ; mk2 18:01 BP 138 / 88; Pulse 78; Resp 17; Pulse Ox 96% on R/A; Pain 3/10; mk2 14:25 Body Mass Index 29.65 (113.40 kg, 195.58 cm) 2 MDM: 14:39 Patient medically screened. 17:24 Differential diagnosis: drug withdrawal. ETOH. Data reviewed: vital signs, nurses notes, old medical records, lab test result(s), and as a result, I will *Transfer Patient. Counseling: I had a detailed discussion with the patient and/or guardian regarding: the historical points, exam findings, and any diagnostic results supporting the discharge/admit diagnosis, lab results, the need for outpatient follow up, with the patient's primary care provider, rehab. Medication response: The patient's symptoms have improved, ativan and librium. ED course: Will do trial of Librium taper to by time for pt to arrange rehab services for himself. . 12/02 14:59 Order name: BASIC METABOLIC PANEL; Complete Time: 16:44 EDMS 12/02 14:59 Order name: HEPATIC PANEL; Complete Time: 16:44 EDMS 12/02 14:59 Order name: LIPASE; Complete Time: 16:44 EDMS 12/02 14:59 Order name: ETHYL ALCOHOL; Complete Time: 16:44 EDMS 12/02 15:45 Order name: CBC W/ MANUAL DIFFERENTIAL; Complete Time: 15:53 EDMS 12/02 15:53 Interpretation: Abnormal. 12/02 14:27 Order name: NPO; Complete Time: 14:32 mk2 12/02 15:00 Order name: EKG - 12 Lead; Complete Time: 15:09 mk2 12/02 15:09 Order name: Oxygen; Complete Time: 15:10 mk2 Dispensed Medications: 14:31 Drug: Ativan 1 mg; Route: IVP; Site: right antecubital; mk2 14:42 Follow up: Response: Anxiety decreased; Pain is decreased mk2 14:32 Drug: Zofran 4 mg; Route: IVP; Infused Over: 2 mins; Site: right antecubital; mk2 14:42 Follow up: Response: Nausea is decreased mk2 14:58 Drug: Banana Bag - (NS 0.9% 1000 ml, folic acid 600 mcg, Thiamine 100 mg, Multivitamin mk2 10 ml, Magnesium Sulfate 1 grams); Route: IV; Rate: calculated rate; Site: right antecubital; 16:13 Follow up: IV Status: Completed infusion; IV Intake: 1000ml mk2 14:59 Drug: Ativan 1 mg; Route: IVP; Site: right antecubital; mk2 15:09 Follow up: Response: Nausea is decreased mk2 17:57 Drug: librium - chlordiazePOXIDE 50 mg; Route: PO; mk2 17:58 Follow up: Response: No adverse reaction mk2 Point of Care Testing: Urine Dip: 17:59 pH: 7.0; ; Specific [place]: 1.020; Ketones: 4 mg/dL; Glucose: Negative; Protein: 2 mk2 mg/dL; Leukocytes: Negative; Nitrite: Negative ; Blood: Negative; Bilirubin: 1 mg/dL; Urobilinogen: Normal 17:59 Pt was unable to urinate until just prior to leaving the building. Pt was advised to mk2 drink a lot of fluids over the next few days. Signatures: Favio Cooper MD MD jm Kruger, Meg, RN RN mk2
== END 2016-12-02 18:02 | disposition home or self-care (01) ==
LOC: ER 14:14 → EEVIPCON 14:14 → ER 18:02
DX: F10.239 Alcohol dependence with withdrawal, unspecified (principal); R10.9 Unspecified abdominal pain; R11.0 Nausea; R00.0 Tachycardia, unspecified; R61 Generalized hyperhidrosis
CPT/HCPCS: 80048; 80076; 80320; 83690; 85007; 85027; 93005; 96365; 96375; 99285; J2060; J2405; J3475; J7030